=== PATIENT | female | born 1950 | race Asian ===

== ENCOUNTER 2017-11-10 05:48 | Emergency (ER) | payer OTHER ==
[~2017-11-10] VITALS: Ht 152.4 cm; Wt 58.6 kg
[~2017-11-10 05:48] MED LIST: CEPHALEXIN500 M1 PO; DILTIA XT180 MG PO; DILTZAC PO; FORTAMET1000 MG PO; HCTZ 25MG25 MG PO; LISINOPRIL40 MG PO
[2017-11-10 05:52] VITALS: BP 145/86; PULSE 108; TEMP 98.3
[2017-11-10] MEDS ORDERED: HCTZ 25MG TAB25 MG PO (06:03)
[2017-11-10] MEDS ORDERED: NORVASC 10MG10 MG PO (06:03)
== END 2017-11-10 07:10 | disposition home or self-care (01) ==
LOC: COL.ER 05:48
DX: S09.90XA Unspecified injury of head, initial encounter (principal); S00.03XA Contusion of scalp, initial encounter; I10 Essential (primary) hypertension; E11.9 Type 2 diabetes mellitus without complications; Z79.84 Long term (current) use of oral hypoglycemic drugs; W00.0XXA Fall on same level due to ice and snow, initial encounter; Y92.89 Other specified places as the place of occurrence of the external cause; Y99.0 Civilian activity done for income or pay